=== PATIENT | male | born 1945 | race Caucasian/White ===

== ENCOUNTER 2018-04-06 19:10 | Emergency (ER) | payer OTHER ==
[~2018-04-06] VITALS: Ht 177.8 cm; Wt 113.4 kg
[2018-04-06 19:23] VITALS: Ht 177.8 cm; Wt 113.4 kg
[2018-04-06 19:39] VITALS: BP 104/69
== END 2018-04-06 19:39 | disposition other institution (70) ==
LOC: ED 19:10
DX: Z02.89 Encounter for other administrative examinations (principal); F10.129 Alcohol abuse with intoxication, unspecified; E11.9 Type 2 diabetes mellitus without complications; I10 Essential (primary) hypertension

== ENCOUNTER 2018-12-26 02:58 | Emergency (ER) | payer OTHER, MEDICAID ==
[~2018-12-26] VITALS: Ht 182.9 cm; Wt 113.4 kg
[2018-12-26 03:17] VITALS: Ht 182.9 cm; Wt 113.4 kg
[2018-12-26 03:57] LABS: BASOPHIL % 0.4 % (0-2); PLATELET COUNT 256 x10^3mcL (130-400)
[2018-12-26 04:00] LABS: RED CELL DISTRIBUTION WIDTH 14.6 % (11.5-14.5)
[2018-12-26 04:07] LABS: ALKALINE PHOSPHATASE 72 U/L (46-116); ALT/SGPT 6 U/L (16-63); AST/SGOT 14 U/L (15-37); BILIRUBIN TOTAL 0.43 mg/dL (0.20-1.00); CALCIUM 8.3 mg/dL (8.5-10.1); CARBON DIOXIDE 25.2 mmol/L (21-32); CREATININE SERUM 1.9 mg/dL (0.7-1.3); GLUCOSE SERUM 117 mg/dL (74-106); TOTAL PROTEIN, SERUM 7.1 g/dL (6.4-8.2)
[2018-12-26 04:08] LABS: ALBUMIN 2.6 g/dL (3.4-5.0)
[2018-12-26 04:16] LABS: CHLORIDE SERUM 105 mmol/L (98-107); POTASSIUM SERUM 4.4 mmol/L (3.5-5.1); SODIUM SERUM 138 mmol/L (136-145)
[2018-12-26] MEDS ORDERED: HYDROCHLOROTHIA25 MG PO (06:24)
[2018-12-26] MEDS ORDERED: ZETIA10 M1 PO (06:25)
[2018-12-26] MEDS ORDERED: NEURONTIN400 MG PO (06:25)
[2018-12-26] MEDS ORDERED: FLUOXETINE HYDR20 M2 PO (06:25)
[2018-12-26] MEDS ORDERED: HYDRALAZINE HCL25 MG PO (06:26)
[2018-12-26] MEDS ORDERED: LORAZEPAM1 MG PO (06:26)
[2018-12-26] MEDS ORDERED: ISOSORBIDE MONO30 MG PO (06:27)
[2018-12-26] MEDS ORDERED: AMLODIPINE BESY PO (06:27)
[2018-12-26] MEDS ORDERED: METOPROLOL TART25 M1 PO (06:28)
[2018-12-26 08:28] LABS: microscopic required? NO
[2018-12-26 08:57] LABS: UA SPECIFIC GRAVITY 1.015 (1.005-1.035); urine erythrocyte NEGATIVE (NEGATIVE)
[2018-12-26 09:16] LABS: AMPHETAMINE QUAL UR NONE DETECTED (See below)
[2018-12-26 09:25] VITALS: BP 157/95
== END 2018-12-26 09:25 | disposition short-term general hospital (02) ==
LOC: ED 02:58
PROVIDERS: Emergency Medicine
DX: E86.0 Dehydration (principal); R53.1 Weakness; I10 Essential (primary) hypertension; E11.9 Type 2 diabetes mellitus without complications; Z98.890 Other specified postprocedural states; W18.39XA Other fall on same level, initial encounter; Y93.89 Activity, other specified; Y92.098 Other place in other non-institutional residence as the place of occurrence of the external cause; Y99.8 Other external cause status
CPT/HCPCS: G0480; J0360; J7030

== ENCOUNTER 2019-01-10 00:16 | Inpatient (IN) | payer OTHER, MEDICAID ==
[~2019-01-10] VITALS: Ht 172.7 cm; Wt 94.0 kg
[~2019-01-10 00:16] MED LIST: AMLODIPINE BESY PO; FLUOXETINE HYDR20 M2 PO; HYDRALAZINE HCL25 MG PO; HYDROCHLOROTHIA25 MG PO; ISOSORBIDE MONO30 MG PO; LORAZEPAM1 MG PO; METOPROLOL TART25 M1 PO; NEURONTIN400 MG PO; ZETIA10 M1 PO
[2019-01-10 00:26] VITALS: Ht 172.7 cm; Wt 94.0 kg
[2019-01-10 01:08] LABS: BASOPHIL % 0.2 % (0-2); PLATELET COUNT 217 x10^3mcL (130-400); RED CELL DISTRIBUTION WIDTH 15.4 % (11.5-14.5)
[2019-01-10 01:20] LABS: ALKALINE PHOSPHATASE 69 U/L (46-116); ALT/SGPT 13 U/L (16-63); AST/SGOT 13 U/L (15-37); BILIRUBIN TOTAL 0.89 mg/dL (0.20-1.00); CALCIUM 9.5 mg/dL (8.5-10.1); CARBON DIOXIDE 27.1 mmol/L (21-32); CHLORIDE SERUM 99 mmol/L (98-107); CREATININE SERUM 2.2 mg/dL (0.7-1.3); GLUCOSE SERUM 110 mg/dL (74-106); POTASSIUM SERUM 4.5 mmol/L (3.5-5.1); SODIUM SERUM 134 mmol/L (136-145)
[2019-01-10 01:21] LABS: ALBUMIN 3.2 g/dL (3.4-5.0)
[2019-01-10 03:08] LABS: CALCIUM 8.4 mg/dL (8.5-10.1); CARBON DIOXIDE 22.7 mmol/L (21-32); CHLORIDE SERUM 102 mmol/L (98-107); CREATININE SERUM 1.9 mg/dL (0.7-1.3); GLUCOSE SERUM 98 mg/dL (74-106); POTASSIUM SERUM 4.1 mmol/L (3.5-5.1); SODIUM SERUM 136 mmol/L (136-145)
[2019-01-10] MEDS ORDERED: [UNRECOGNIZED DRUG - OTHER] PO (04:42)
[2019-01-10] MEDS ORDERED: IRBESARTAN PO (04:42)
[2019-01-10] MEDS ORDERED: NITROGLYCERIN0.4 MG (04:43)
[2019-01-10] MEDS ORDERED: ATORVASTATIN CA80 M1 (04:44)
[2019-01-10] MEDS ORDERED: INDOMETHACIN50 MG PO (04:45)
[2019-01-10] MEDS ORDERED: BRILINTA60 MG (04:46)
[2019-01-10] MEDS ORDERED: DORZOLAMIDE HCL10 ML OP (04:47)
[2019-01-10] MEDS ORDERED: PROAIR HFA8.5 GM (04:48)
[2019-01-10] MEDS ORDERED: DEPAKOTE ER500 MG (04:49)
[2019-01-10 05:37] LABS: T3 TOTAL 1.38 ng/mL
[2019-01-10 05:38] LABS: CHOLESTEROL/HDL RATIO 2.8; MAGNESIUM 2.6 mg/dL (1.8-2.4); PHOSPHOROUS 5.2 mg/dL (2.5-4.9)
[2019-01-10 05:45] LABS: FREE T4 1.15 ng/dL (0.76-1.46); FREE THYROXINE INDEX 2.8 ug/dL (1.4-4.5)
[2019-01-10 06:47] VITALS: BP 132/70
[2019-01-10 08:53] VITALS: BP 144/88
[2019-01-10 11:01] VITALS: BP 132/70
[2019-01-10 17:00] VITALS: BP 121/82
[2019-01-10 17:15] LABS: microscopic required? NO
[2019-01-10 17:22] LABS: urine erythrocyte NEGATIVE (NEGATIVE)
[2019-01-10 17:33] LABS: AMPHETAMINE QUAL UR NONE DETECTED (See below)
[2019-01-10 20:00] VITALS: BP 113/66
[2019-01-10 22:12] VITALS: BP 108/64
[2019-01-11 05:49] VITALS: BP 134/81
[2019-01-11 06:44] LABS: CALCIUM 7.7 mg/dL (8.5-10.1); CARBON DIOXIDE 23.6 mmol/L (21-32); CHLORIDE SERUM 109 mmol/L (98-107); CREATININE SERUM 1.5 mg/dL (0.7-1.3); GLUCOSE SERUM 92 mg/dL (74-106); MAGNESIUM 2.3 mg/dL (1.8-2.4); POTASSIUM SERUM 4.7 mmol/L (3.5-5.1); SODIUM SERUM 141 mmol/L (136-145)
[2019-01-11 08:07] LABS: BASOPHIL % 0.6 % (0-2); PLATELET COUNT 189 x10^3mcL (130-400); RED CELL DISTRIBUTION WIDTH 15.6 % (11.5-14.5)
[2019-01-11 09:01] VITALS: BP 140/67
[2019-01-11 17:30] VITALS: BP 121/66
[2019-01-11 20:43] VITALS: BP 117/69
[2019-01-12 05:38] VITALS: BP 116/63
[2019-01-12 09:34] VITALS: BP 132/76
[2019-01-12 16:51] VITALS: BP 137/77
[2019-01-12 17:50] VITALS: BP 137/77
== END 2019-01-12 18:15 | disposition home or self-care (01) | DRG 73 ==
LOC: ED 00:16 → MU 04:22
PROVIDERS: Emergency Medicine; ADMIT Family Medicine
DX: G90.9 Disorder of the autonomic nervous system, unspecified (principal); N17.0 Acute kidney failure with tubular necrosis; E86.0 Dehydration; I10 Essential (primary) hypertension; M10.9 Gout, unspecified; E02 Subclinical iodine-deficiency hypothyroidism; Z68.30 Body mass index [BMI] 30.0-30.9, adult; Z95.1 Presence of aortocoronary bypass graft; F17.210 Nicotine dependence, cigarettes, uncomplicated; Z95.5 Presence of coronary angioplasty implant and graft
CPT/HCPCS: 83880; 84439; 97112-GP; 97116-GP; 97530-GP; J3535; J7030; J7509; J8597; Q0092; Q0162

== ENCOUNTER 2019-02-07 13:07 | Inpatient (IN) | payer OTHER, MEDICAID ==
[~2019-02-07] VITALS: Ht 172.7 cm; Wt 95.7 kg
[~2019-02-07 13:07] MED LIST changes: +ATORVASTATIN CA80 M1; +BRILINTA60 MG; +DEPAKOTE ER500 MG; +DORZOLAMIDE HCL10 ML OP; +INDOMETHACIN50 MG PO; +IRBESARTAN PO; +NITROGLYCERIN0.4 MG; +PROAIR HFA8.5 GM; +[UNRECOGNIZED DRUG - OTHER] PO
[2019-02-07 13:58] LABS: BASOPHIL % 0.5 % (0-2); PLATELET COUNT 259 x10^3mcL (130-400)
[2019-02-07 14:03] LABS: RED CELL DISTRIBUTION WIDTH 16.3 % (11.5-14.5)
[2019-02-07 14:26] LABS: CALCIUM 8.4 mg/dL (8.5-10.1); CARBON DIOXIDE 24.5 mmol/L (21-32); CHLORIDE SERUM 104 mmol/L (98-107); GLUCOSE SERUM 122 mg/dL (74-106); POTASSIUM SERUM 4.4 mmol/L (3.5-5.1); SODIUM SERUM 136 mmol/L (136-145)
[2019-02-07 14:31] LABS: ALKALINE PHOSPHATASE 94 U/L (46-116); ALT/SGPT 14 U/L (16-63); AST/SGOT 13 U/L (15-37); BILIRUBIN TOTAL 0.6 mg/dL (0.20-1.00); TOTAL PROTEIN, SERUM 6.8 g/dL (6.4-8.2)
[2019-02-07] MEDS ORDERED: [UNRECOGNIZED DRUG - REMARK] (15:22)
[2019-02-07 16:43] LABS: MAGNESIUM 2.1 mg/dL (1.8-2.4); PHOSPHOROUS 2.8 mg/dL (2.5-4.9)
[2019-02-07 16:47] LABS: CHOLESTEROL/HDL RATIO 3.3
[2019-02-07 16:52] LABS: T3 TOTAL 0.97 ng/mL
[2019-02-07 16:53] LABS: FREE THYROXINE INDEX 2.6 ug/dL (1.4-4.5); T4(THYROXINE) 7.1 ug/dL (4.7-13.3)
[2019-02-07 18:46] VITALS: BP 155/89
[2019-02-07 18:52] VITALS: Ht 172.7 cm; Wt 95.7 kg
[2019-02-07 20:43] VITALS: BP 130/51
[2019-02-07 20:49] VITALS: BP 154/89
[2019-02-08] VITALS (8 sets, daily range): BP systolic 156–174; BP diastolic 75–104
[2019-02-08 02:52] LABS: microscopic required? NO
[2019-02-08 03:03] LABS: UA SPECIFIC GRAVITY 1.015 (1.005-1.035); urine erythrocyte NEGATIVE (NEGATIVE)
[2019-02-08 07:17] LABS: BASOPHIL % 0.6 % (0-2)
[2019-02-08 07:44] LABS: CALCIUM 8.1 mg/dL (8.5-10.1); CARBON DIOXIDE 23.3 mmol/L (21-32); CHLORIDE SERUM 107 mmol/L (98-107); CREATININE SERUM 1.2 mg/dL (0.7-1.3); GLUCOSE SERUM 82 mg/dL (74-106); SODIUM SERUM 137 mmol/L (136-145)
[2019-02-08 08:29] LABS: PLATELET COUNT 207 x10^3mcL (130-400)
[2019-02-08 08:44] LABS: RED CELL DISTRIBUTION WIDTH 16.3 % (11.5-14.5)
[2019-02-09] VITALS (7 sets, daily range): BP systolic 143–195; BP diastolic 87–112
[2019-02-09 07:18] LABS: BASOPHIL % 0.5 % (0-2); PLATELET COUNT 225 x10^3mcL (130-400)
[2019-02-09 07:24] LABS: RED CELL DISTRIBUTION WIDTH 16.2 % (11.5-14.5)
[2019-02-09 07:36] LABS: CALCIUM 8.5 mg/dL (8.5-10.1); CARBON DIOXIDE 27.8 mmol/L (21-32); CHLORIDE SERUM 104 mmol/L (98-107); GLUCOSE SERUM 93 mg/dL (74-106); SODIUM SERUM 138 mmol/L (136-145)
== END 2019-02-09 13:58 | disposition home or self-care (01) | DRG 73 ==
LOC: ED 13:07 → DU 15:59
PROVIDERS: Emergency Medicine; ADMIT General Practice
DX: G90.8 Other disorders of autonomic nervous system (principal); N17.0 Acute kidney failure with tubular necrosis; E44.0 Moderate protein-calorie malnutrition; R73.03 Prediabetes; E78.5 Hyperlipidemia, unspecified; M10.9 Gout, unspecified; I10 Essential (primary) hypertension; Z96.653 Presence of artificial knee joint, bilateral; Z91.81 History of falling; I25.2 Old myocardial infarction; Z68.30 Body mass index [BMI] 30.0-30.9, adult; Z95.1 Presence of aortocoronary bypass graft; Z95.5 Presence of coronary angioplasty implant and graft
CPT/HCPCS: 83880; 84439; 97112-GP; 97116-GP; J3490; J3535; J7030

== ENCOUNTER 2019-02-14 13:29 | Emergency (ER) | payer OTHER, MEDICAID ==
[~2019-02-14] VITALS: Ht 172.7 cm; Wt 90.7 kg
[~2019-02-14 13:29] MED LIST changes: +[UNRECOGNIZED DRUG - REMARK]
[2019-02-14 13:31] VITALS: Ht 172.7 cm; Wt 90.7 kg
[2019-02-14 14:22] LABS: BASOPHIL % 0.4 % (0-2); PLATELET COUNT 303 x10^3mcL (130-400)
[2019-02-14 14:24] LABS: RED CELL DISTRIBUTION WIDTH 16.1 % (11.5-14.5)
[2019-02-14 14:45] LABS: CALCIUM 8.6 mg/dL (8.5-10.1); CARBON DIOXIDE 29.6 mmol/L (21-32); CHLORIDE SERUM 105 mmol/L (98-107); CREATININE SERUM 1.7 mg/dL (0.7-1.3); GLUCOSE SERUM 112 mg/dL (74-106); POTASSIUM SERUM 3.9 mmol/L (3.5-5.1); SODIUM SERUM 142 mmol/L (136-145)
[2019-02-14 14:56] LABS: ALKALINE PHOSPHATASE 93 U/L (46-116); ALT/SGPT 16 U/L (16-63); AMYLASE 84 U/L (25-115); AST/SGOT 21 U/L (15-37); BILIRUBIN TOTAL 0.76 mg/dL (0.20-1.00); HDL CHOLESTEROL 43 mg/dL (40-60); LIPASE 295 IU/L (73-393); MAGNESIUM 1.7 mg/dL (1.8-2.4); T4(THYROXINE) 7.2 ug/dL (4.7-13.3); TOTAL PROTEIN, SERUM 7.2 g/dL (6.4-8.2)
[2019-02-14 15:10] LABS: ALBUMIN 3.3 g/dL (3.4-5.0); CHOLESTEROL 127 mg/dL (<200)
[2019-02-14 16:12] VITALS: BP 128/83
== END 2019-02-14 16:12 | disposition home or self-care (01) ==
LOC: ED 13:29
PROVIDERS: Emergency Medicine
DX: I95.9 Hypotension, unspecified (principal); E86.0 Dehydration; I12.9 Hypertensive chronic kidney disease with stage 1 through stage 4 chronic kidney disease, or unspecified chronic kidney disease; N18.3 Chronic kidney disease, stage 3 (moderate); I25.810 Atherosclerosis of coronary artery bypass graft(s) without angina pectoris; H57.02 Anisocoria; E78.00 Pure hypercholesterolemia, unspecified; Z68.30 Body mass index [BMI] 30.0-30.9, adult
CPT/HCPCS: 82962; 83880; J7040; Q0092

== ENCOUNTER 2019-04-10 07:35 | Emergency (ER) | payer OTHER, MEDICAID ==
[~2019-04-10] VITALS: Ht 177.8 cm; Wt 90.7 kg
[2019-04-10 07:38] VITALS: Ht 177.8 cm; Wt 90.7 kg
[2019-04-10 08:32] LABS: microscopic required? NO
[2019-04-10 08:37] LABS: BASOPHIL % 0.1 % (0-2); PLATELET COUNT 183 x10^3mcL (130-400)
[2019-04-10 08:47] LABS: CALCIUM 9.2 mg/dL (8.5-10.1); CARBON DIOXIDE 27.3 mmol/L (21-32); CHLORIDE SERUM 102 mmol/L (98-107); GLUCOSE SERUM 107 mg/dL (74-106); POTASSIUM SERUM 5.2 mmol/L (3.5-5.1); SODIUM SERUM 135 mmol/L (136-145)
[2019-04-10 08:51] LABS: ALBUMIN 3.1 g/dL (3.4-5.0); ALKALINE PHOSPHATASE 87 U/L (46-116); ALT/SGPT 8 U/L (16-63); AST/SGOT 17 U/L (15-37); BILIRUBIN TOTAL 0.59 mg/dL (0.20-1.00); TOTAL PROTEIN, SERUM 7.4 g/dL (6.4-8.2); URIC ACID 6.7 mg/dL (3.5-7.2)
[2019-04-10 09:48] LABS: UA SPECIFIC GRAVITY 1.015 (1.005-1.035)
[2019-04-10 09:49] LABS: urine erythrocyte NEGATIVE (NEGATIVE)
[2019-04-10 14:02] VITALS: BP 140/80
== END 2019-04-10 14:02 | disposition home or self-care (01) ==
LOC: ED 07:35
PROVIDERS: Emergency Medicine
DX: L03.116 Cellulitis of left lower limb (principal); L03.115 Cellulitis of right lower limb; I10 Essential (primary) hypertension; E78.00 Pure hypercholesterolemia, unspecified
CPT/HCPCS: J1885; J7030